=== PATIENT | male | born 1980 | race Caucasian/White ===

== ENCOUNTER 2021-05-26 19:57 | Emergency (ER) | payer SELFPAY ==
[2021-05-26 20:26] VITALS: TEMP 98.1; BMI 34.9
[2021-05-26 21:21] LABS: BASO % 1.6 % (0-2.0); EOS % 7.6 % (0-4.5); HEMOGLOBIN 11.4 GM/dL (11.7-16.9); LYMPH % 27.1 % (8-40); MCH 31.5 pg (25.7-33.7); MCHC 34.7 g/dl (32.0-35.9); MEAN CELL VOLUME 90.8 fl (80-96); MEAN PLT VOLUME 9.8 fl (7.5-11.1); MONO % 10.4 % (3.8-10.2); NEUT % 53.3 % (42.8-82.8); PLATELET COUNT 42 10^3/uL (134-434); RBC 3.63 M/mm3 (4.00-5.60); WHITE BLOOD COUNT 5.6 K/mm3 (4.0-10.0)
[2021-05-26 21:47] LABS: CHLORIDE 106 mmol/L (98-107); SODIUM 142 mmol/L (136-145)
[2021-05-26 21:49] LABS: CALCIUM 7.5 mg/dL (8.5-10.1)
[2021-05-26 21:50] LABS: ALBUMIN 2.6 g/dl (3.4-5.0); ANION GAP 8 MMOL/L (8-16); BLOOD UREA NITROGEN 7.4 mg/dL (7-18); CO2 27 mmol/L (21-32); GLUCOSE,RANDOM 103 mg/dL (74-106); MAGNESIUM 1.4 mg/dL (1.8-2.4)
[2021-05-26 21:52] LABS: SGPT/ALT 44 U/L (13-61)
[2021-05-26 21:53] LABS: CREATININE 0.5 mg/dL (0.55-1.3); SGOT/AST 129 U/L (15-37)
[2021-05-26 21:54] LABS: BILIRUBIN,TOTAL 1.5 mg/dL (0.2-1); TOT PROT 8.4 g/dl (6.4-8.2)
[2021-05-26 21:55] LABS: ALK PHOS 135 U/L (45-117)
[2021-05-26] MEDS ORDERED: MAGNESIUM OXIDE 400 MG TABLET (FP) PO ONE (22:12)
[2021-05-26] MEDS ORDERED: POTASSIUM CHLORIDE TABS 20 MEQ TABLET.ER (FP) PO ONE ×2 (22:13→22:22)
[2021-05-26] MEDS ORDERED: MAGNESIUM OXIDE 400 MG TABLET (FP) ONE (22:22)
[2021-05-26 23:25] VITALS: BP 125/72; PULSE 82
== END 2021-05-26 23:20 | disposition home or self-care (01) ==
LOC: JER 19:57
DX: I87.2 Venous insufficiency (chronic) (peripheral) (principal); F10.929 Alcohol use, unspecified with intoxication, unspecified; E87.6 Hypokalemia; E83.42 Hypomagnesemia
CPT/HCPCS: 36415; 80053; 80307; 82550; 82553; 83735; 83880; 84484; 85025; 93005; 93010; 93970-TC; 99285-25; C9803; U0003; U0005

== ENCOUNTER 2021-05-27 01:09 | Inpatient (IN) | payer SELFPAY ==
[2021-05-27] MEDS ORDERED: MAGNESIUM CITRATE 300 ML BOTTLE PO PRN (01:26)
[2021-05-27] MEDS ORDERED: P-EPHED 60MG/TRIPROLIDI 2.5MG TABLET PO PRN (01:26)
[2021-05-27] MEDS ORDERED: BISMUTH SUBSALICYLATE 524 MG/30 ML PO PRN (01:26)
[2021-05-27] MEDS ORDERED: MAG HYDROX/AL HYDROX/SIMETH 30 ML UNIT-DOSE CUP PO PRN (01:26)
[2021-05-27] MEDS ORDERED: MAGNESIUM HYDROX 2400MG/30ML ORAL SUSPENSION 30 ML CUP PO PRN (01:26)
[2021-05-27] MEDS ORDERED: MENTHOL/PHENOL 1 EACH UD MM PRN (01:26)
[2021-05-27] MEDS ORDERED: ONDANSETRON *ODT* 4 MG TABLET SL PRN (01:26)
[2021-05-27] MEDS ORDERED: ACETAMINOPHEN 325 MG TABLET (FP) PO PRN ×2 (01:26)
[2021-05-27] MEDS ORDERED: guaiFENesin 200 MG/10 ML 10 ML UNIT-DOSE CUPS PO PRN (01:26)
[2021-05-27] MEDS ORDERED: LORazepam 1 MG TABLET PO PRN (01:26)
[2021-05-27] MEDS ORDERED: DICYCLOMINE HCL 10 MG CAPSULE PO PRN (01:26)
[2021-05-27] MEDS ORDERED: IBUPROFEN 400 MG TABLET (FP) PO PRN (01:26)
[2021-05-27] MEDS ORDERED: hydrOXYzine PAMOATE 25 MG CAPSULE (FP) PO PRN (01:26)
[2021-05-27] MEDS ORDERED: METHOCARBAMOL 500 MG TABLET PO PRN (01:26)
[2021-05-27 01:46] VITALS: BMI 43.4
[2021-05-27] MEDS ORDERED: LORazepam 1 MG TABLET ONE (01:49)
[2021-05-27] MEDS: LORazepam 2 MG TABLET PO SCH ×2 (05:51→10:46)
[2021-05-27] MEDS ORDERED: PRENATAL VITAMINS W/ FOLIC ACID TABLET (FP) PO SCH (10:00)
[2021-05-27 13:29] VITALS: BP 112/63; PULSE 90; TEMP 97.3
[2021-05-27] MEDS ORDERED: THIAMINE HCL 100 MG TABLET (FP) PO SCH (22:00)
[2021-05-27] MEDS ORDERED: MELATONIN 5 MG TABLETS PO SCH (22:00)
[2021-05-28] MEDS ORDERED: LORazepam 1 MG TABLET PO SCH (05:00)
[2021-05-29] MEDS ORDERED: LORazepam 0.5 MG TABLET PO PRN
[2021-05-29] MEDS ORDERED: LORazepam 0.5 MG TABLET PO SCH (05:00)
[2021-05-30] MEDS ORDERED: LORazepam 0.5 MG TABLET PO ONE (05:00)
== END 2021-05-27 14:57 | disposition left against medical advice (07) | DRG 770 ==
LOC: YASAS 01:09 → Y3N 01:13
PROVIDERS: ADMIT Allergy & Immunology; ATTEND Allergy & Immunology
PROC: HZ2ZZZZ Detoxification Services for Substance Abuse Treatment (ICD-10-PCS; principal; 2021-05-27)
DX: F10.230 Alcohol dependence with withdrawal, uncomplicated (principal); I87.2 Venous insufficiency (chronic) (peripheral); E66.01 Morbid (severe) obesity due to excess calories; Z68.41 Body mass index [BMI] 40.0-44.9, adult; R60.0 Localized edema; R46.0 Very low level of personal hygiene; Z59.0 Homelessness
CPT/HCPCS: 36415; 86780